=== PATIENT | female | born 1945 | race Caucasian/White ===

== ENCOUNTER → 2023-09-11 10:24 | Outpatient (REF) | payer MEDICARE, SELFPAY | LOC: WDC 10:24 | PROVIDERS: ATTENDING PHYSICIAN Family Medicine | DX: Z12.31 Encounter for screening mammogram for malignant neoplasm of breast (principal); Z78.0 Asymptomatic menopausal state; M81.0 Age-related osteoporosis without current pathological fracture | CPT/HCPCS: 77063; 77067; 77080 ==

== ENCOUNTER → 2023-10-22 12:06 | Outpatient (REF) | payer MEDICARE, SELFPAY | LOC: RAD 12:06 | PROVIDERS: ATTENDING PHYSICIAN Family Medicine | DX: M81.0 Age-related osteoporosis without current pathological fracture (principal) | CPT/HCPCS: 72072; 72110 ==

== ENCOUNTER → 2024-11-28 14:22 | Outpatient (REF) | payer MEDICARE, SELFPAY | LOC: RCS 14:22 | PROVIDERS: ATTENDING PHYSICIAN Internal Medicine Cardiovascular Disease; FAMILY PHYSICIAN Family Medicine | DX: I34.0 Nonrheumatic mitral (valve) insufficiency (principal) | CPT/HCPCS: 93306 ==

== ENCOUNTER 2024-12-01 12:34 | Emergency (ER) | payer MEDICARE, SELFPAY ==
[2024-12-01 12:35] VITALS: BP 139/77
[2024-12-01 13:14] VITALS: BMI 19.4
--- NOTE | 2024-12-01 13:14 | ED.MUSCINJ ---
HPI-Injury
General
Chief Complaint: Musculo-Skeletal Complaint
Source: patient
Exam Limitations: none
Time Seen by Provider: 12/01/24 13:01
History of Present Illness-Injury
Initial Injury comments:
78-year-old [id number] female presents complaining of left wrist pain starting today. She tripped and fell forward holding her hand out. She only complains of left wrist pain. She did not hit her head. No neck pain or shortness of
breath or chest pain. She takes Synthroid but no anticoagulants. No other complaints at this time
Past History
Past History
ED Past Medical History: Hypothyroidism and Other (Bowel obstruction)
ED Past Surgical History: Gynecological and Other (Hernia repair)
Social History
Tobacco: Non-smoker
Phy Exam
Physical Exam
Physical Exam:
General: Well-appearing female no acute respiratory distress
HEENT normal cephalic atraumatic no cervical spine tenderness
Musculoskeletal exam: Left wrist is tender over the distal radius no significant deformity. Able to move her fingers. The elbow and shoulder are nontender
Vascular: 2+ radial pulse
Neurologic: Good sensation left hand
Injury Course
Orders/Labs/Results
Orders:
Orders
12/01/24 12:35
Wrist, Left 3 Views CR [CR Wrist - Left Min 3 Views] Urgent
Comment:
Reason For Exam: fall left wrist pain
12/01/24 13:14
Ibuprofen [Motrin] 600 mg PO NOW STA
12/01/24 13:17
Ibuprofen [Motrin] 600 mg .ROUTE .STK-MED ONE
MDM/Problems Addressed
Differential Diagnosis Includes:
Fall with left wrist pain. Consider sprain wrist fracture wrist dislocation. Motrin ordered for pain. X-rays pending
*Pulse Oximetry
SaO2: 97
Oxygen Mode of Delivery: Room air
Patient hypoxic: no
*Critical Care Note
Total Time (30-74mins, 75-104mins- exclusive of procedures): Not Applicable
Update Note
Update Note:
X-rays demonstrate fracture of the distal radial metaphysis with minimal angulation and displacement. There is no significant impaction. I placed the patient in a volar splint using cast padding OCL and Stephon bandages. She was referred to
orthopedic further evaluation
ED Attending Note
-
Portions of this chart may have been created with voice recognition software.� Occasional wrong word or��sound alike� substitutions may have occurred due to the inherent limitations of voice recognition software.
Discharge Plan
Departure
Patient Disposition: Home (Routine Discharge)
Date of Disposition: 12/01/24
Time of Disposition: 13:34
Patient with high blood pressure during this ER visit?: No
Discharge Problem:
Fracture of wrist
Instructions: Muscle and Bone Pain (DC)
Referrals:
Burak Rubio MD [Active, Orthopedics]
Sunita Mathews MD [Family Provider, Family Practice]
Activity Restrictions/Additional Instructions:
Keep splint on and dry. Continue with ibuprofen or Tylenol for pain. Follow-up with orthopedics for further evaluation
Interventions
Interventions:
*Risk Screen - Suicide Last Done: 12/01/24 12:35
*Neglect/Abuse Screening Last Done: 12/01/24 12:39
*Nursing Disposition Last Done: 12/01/24 14:00
ED-Musculoskeletal Assessment Last Done: 12/01/24 13:15
Discharge Date and Time
Discharge Date/Time: 12/01/24 14:01
Print Language: MALAGASY
[2024-12-01] MEDS: MOTRIN 600 MG PO (13:17)
== END 2024-12-01 14:01 | disposition home or self-care (01) ==
LOC: EMR 12:34
PROVIDERS: EMERGENCY PHYSICIAN Emergency Medicine; FAMILY PHYSICIAN Family Medicine
DX: S52.502A Unspecified fracture of the lower end of left radius, initial encounter for closed fracture (principal); W01.0XXA Fall on same level from slipping, tripping and stumbling without subsequent striking against object, initial encounter; E03.9 Hypothyroidism, unspecified
CPT/HCPCS: 99283; 73110